=== PATIENT | female | born 1995 | race Caucasian/White ===

== ENCOUNTER 2018-01-25 15:38 | Outpatient (CLI) | payer MEDICAID ==
[~2018-01-25] VITALS: Ht 160 cm; Wt 60.0 kg
[2018-01-25 16:20] VITALS: BP 92/55
[2018-01-25 17:03] VITALS: BP 92/55
[2018-01-25 17:12] LABS: MICROSCOPIC INDICATED
[2018-01-25] MEDS ORDERED: NITR100C56 PO (18:18)
[2018-01-25] MEDS ORDERED: NITROFURANTOIN (MACROBID) 100 MG CAPSULE ONE (18:23)
[2018-01-25] MEDS ORDERED: PLEASE ENTER ALLERGIES MC SCH (18:30)
[2018-01-25] MEDS ORDERED: NITROFURANTOIN (MACROBID) 100 MG CAPSULE PO ONE (18:30)
[2018-01-25] MEDS ORDERED: NITROFURANTOIN (MACROBID) 100 MG CAPSULE PO SCH (18:30)
== END 2018-01-25 18:30 | disposition home or self-care (01) ==
LOC: LDOP 15:38
PROVIDERS: ATTEND Obstetrics & Gynecology
DX: O26.893 Other specified pregnancy related conditions, third trimester (principal); R10.9 Unspecified abdominal pain; Z3A.33 33 weeks gestation of pregnancy
CPT/HCPCS: 36415; 59025; 81001; 82731; 87086; 99211; G0463

== ENCOUNTER 2018-02-10 15:55 | Inpatient (IN) | payer MEDICAID ==
[~2018-02-10] VITALS: Ht 160 cm; Wt 62.0 kg
[~2018-02-10 15:55] MED LIST: NITR100C56 PO
[2018-02-10] MEDS ORDERED: D5%-LACTATED RINGERS 1,000 ML IV SCH (16:26)
[2018-02-10] MEDS ORDERED: OXYTOCIN 30U/ 0.9% NaCL 500ML 500 ML IV ONE (16:26)
[2018-02-10] MEDS ORDERED: FENTANYL PF 100 MCG/2ML IVPush PRN (16:30)
[2018-02-10] MEDS ORDERED: FENTANYL PF 100 MCG/2ML IV PRN (16:30)
[2018-02-10] MEDS ORDERED: BETAMETHASONE 6 MG/ML, 5ML IM SCH (16:30)
[2018-02-10] MEDS ORDERED: PENICILLIN GK 5,000,000 UNITS in SODIUM CHLORIDE 0.9% 100 ML IVPB ONE (16:30)
[2018-02-10] MEDS ORDERED: ONDANSETRON 2MG/ML, 2ML IVPush PRN (16:30)
[2018-02-10] MEDS ORDERED: TERBUTALINE 1 MG/ML, 1ML IVPush PRN (16:30)
[2018-02-10] MEDS ORDERED: CALCIUM CARBONATE 500 MG TAB.CHEW PO PRN (16:30)
[2018-02-10 16:44] VITALS: BP 112/66
[2018-02-10] MEDS ORDERED: OXYTOCIN 30U/ 0.9% NaCL 500ML 500 ML ONE (16:49)
[2018-02-10] MEDS ORDERED: BETAMETHASONE 6 MG/ML, 5ML IM ONE (16:49)
[2018-02-10] MEDS ORDERED: NEWBORN KIT ONE (16:49)
[2018-02-10 17:03] LABS: BASOPHILS # (AUTO) 0.04 x10^3/uL (0-0.1); BASOPHILS % (AUTO) 1 % (0-1); EOSINOPHILS # (AUTO) 0.11 x10^3/uL (0-0.4); EOSINOPHILS % (AUTO) 1 % (1-7); LYMPHOCYTES # (AUTO) 1.46 x10^3/uL (1-3.4); LYMPHOCYTES % (AUTO) 19 % (22-44); MD NO; MEAN CORPUSCULAR HEMOGLOBIN 24.6 pg (27.0-34.8); MEAN CORPUSCULAR VOLUME 76.8 fL (80-100); MONOCYTES # (AUTO) 0.85 x10^3/uL (0.2-0.8); MONOCYTES % (AUTO) 11 % (2-9); NEUTROPHILS # (AUTO) 5.33 x10^3/uL (1.8-6.8); NEUTROPHILS % (AUTO) 68 % (42-75); PLATELET COUNT 248 x10^3/uL (130-400); RED BLOOD COUNT 3.79 x10^6/uL (3.82-5.3); RED CELL DISTRIBUTION WIDTH 14.1 % (9.6-15.2)
[2018-02-10] MEDS: LACTATED RINGERS 1,000 ML IV SCH (17:04)
[2018-02-10 17:26] LABS: AMPHETAMINE SCREEN, URINE Negative (Negative); BARBITURATE SCREEN, URINE Negative (Negative); BENZODIAZEPINE SCREEN, URINE Negative (Negative); CANNABINOID SCREEN, URINE Negative (Negative); COCAINE SCREEN, URINE Negative (Negative); METHADONE SCREEN, URINE Negative (Negative); OPIATE SCREEN, URINE Negative (Negative)
[2018-02-10] MEDS ORDERED: FENTANYL/BUPIV./NS/PF 250 ML EPIDCONT SCH ×2 (19:19→22:44)
[2018-02-10 19:24] VITALS: BP 97/56
[2018-02-10] MEDS ORDERED: FENTANYL PF 500 MCG, BUPIVACAINE/PF 0.5%, 30ML 62.5 ML in SODIUM CHLORIDE 0.9% 177.5 ML EPIDCONT SCH (19:30)
[2018-02-10] MEDS ORDERED: MISOPROSTOL 200 MCG TABLET ONE (19:47)
[2018-02-10] MEDS ORDERED: LIDOCAINE/PF 1%, 30ML ONE (19:47)
[2018-02-10] MEDS ORDERED: FENTANYL PF 100 MCG/2ML ONE (19:53)
[2018-02-10] MEDS: PENICILLIN GK 2,500,000 UNITS in DEXTROSE 5% 100 ML IVPB SCH (21:09)
[2018-02-10] MEDS ORDERED: LACTATED RINGERS 1,000 ML IV SCH (22:44)
[2018-02-10] MEDS ORDERED: NALOXONE 0.4 MG/ML, 1ML IVPush PRN (23:00)
[2018-02-10] MEDS ORDERED: EPHEDRINE 50 MG/ML, 1ML IVPush PRN (23:00)
[2018-02-10] MEDS ORDERED: LACTATED RINGERS 1,000 ML IVBOLUS PRN (23:00)
[2018-02-11] MEDS: PENICILLIN GK 2,500,000 UNITS in DEXTROSE 5% 100 ML IVPB SCH ×3 (01:05→08:59)
[2018-02-11] MEDS: LACTATED RINGERS 1,000 ML IV SCH (05:13)
[2018-02-11] MEDS ORDERED: OXYTOCIN 30U/ 0.9% NaCL 500ML 500 ML IV PRN (06:34)
[2018-02-11] MEDS: OXYTOCIN 30U/ 0.9% NaCL 500ML 500 ML IV SCH ×2 (11:46→21:46)
[2018-02-11] MEDS ORDERED: IBUPROFEN 600 MG TABLET ONE (11:56)
[2018-02-11] MEDS ORDERED: OXYTOCIN 30U/ 0.9% NaCL 500ML 500 ML ONE (11:56)
[2018-02-11] MEDS: IBUPROFEN 600 MG TABLET PO PRN ×2 (11:59→18:27)
[2018-02-11] MEDS ORDERED: OXYcodone/APAP 5/325MG TABLET PO PRN (12:00)
[2018-02-11] MEDS ORDERED: OXYcodone IR 5MG TABLET PO PRN (12:00)
[2018-02-11] MEDS ORDERED: ACETAMINOPHEN 325 MG TABLET PO PRN (12:00)
[2018-02-11] MEDS ORDERED: MISOPROSTOL 200 MCG TABLET PR PRN (12:00)
[2018-02-11] MEDS ORDERED: ONDANSETRON 2MG/ML, 2ML IV PRN (12:00)
[2018-02-11 13:30] VITALS: BP 106/67
[2018-02-11 16:30] VITALS: BP 111/68
[2018-02-11 19:40] LABS: MEAN CORPUSCULAR HEMOGLOBIN 25.8 pg (27.0-34.8); MEAN CORPUSCULAR HGB CONC 33.2 g/dL (32.4-35.8); MEAN CORPUSCULAR VOLUME 77.8 fL (80-100); MEAN PLATELET VOLUME 9.1 fL (7.4-10.4); PLATELET COUNT 227 x10^3/uL (130-400); RED BLOOD COUNT 3.37 x10^6/uL (3.82-5.3); RED CELL DISTRIBUTION WIDTH 14.2 % (9.6-15.2)
[2018-02-11 20:00] VITALS: BP 102/64
[2018-02-11 20:11] LABS: BASOPHILS # (AUTO) 0.12 x10^3/uL (0-0.1); BASOPHILS % (AUTO) 1 % (0-1); EOSINOPHILS # (AUTO) 0.02 x10^3/uL (0-0.4); EOSINOPHILS % (AUTO) 0 % (1-7); LYMPHOCYTES # (AUTO) 1.36 x10^3/uL (1-3.4); LYMPHOCYTES % (AUTO) 8 % (22-44); MD SCAN; MONOCYTES # (AUTO) 1.54 x10^3/uL (0.2-0.8); MONOCYTES % (AUTO) 9 % (2-9); NEUTROPHILS # (AUTO) 13.39 x10^3/uL (1.8-6.8); NEUTROPHILS % (AUTO) 82 % (42-75)
[2018-02-12 00:15] VITALS: BP 100/65
[2018-02-12] MEDS: IBUPROFEN 600 MG TABLET PO PRN ×4 (00:34→19:39)
[2018-02-12 04:00] VITALS: BP 101/64
[2018-02-12 07:00] VITALS: BP 108/48
[2018-02-12] MEDS: PRENATAL VIT/IRON/FA 1 EACH TABLET PO SCH (07:19)
[2018-02-12] MEDS: DOCUSATE 100 MG CAPSULE PO PRN ×2 (07:19→19:40)
[2018-02-12] MEDS: OXYTOCIN 30U/ 0.9% NaCL 500ML 500 ML IV SCH (07:46)
[2018-02-12 19:30] VITALS: BP 111/75
[2018-02-13] MEDS: IBUPROFEN 600 MG TABLET PO PRN ×3 (01:46→14:01)
[2018-02-13] MEDS: DOCUSATE 100 MG CAPSULE PO PRN (07:53)
[2018-02-13] MEDS: PRENATAL VIT/IRON/FA 1 EACH TABLET PO SCH (07:53)
[2018-02-13 08:00] VITALS: BP 107/70
[2018-02-13] MEDS ORDERED: IBUP-1222 PO (10:51)
== END 2018-02-13 14:00 | disposition home or self-care (01) | DRG 775 ==
LOC: LDOP 15:55 → LDIP 16:26 → UNDOADMIN 16:33 → LDIP 02-11 03:57 → 2NW 02-11 14:02
PROVIDERS: ADMIT Obstetrics & Gynecology; ATTEND Obstetrics & Gynecology
PROC: 10E0XZZ Delivery of Products of Conception, External Approach (ICD-10-PCS; principal; 2018-02-11)
PROC: 0HQ9XZZ Repair Perineum Skin, External Approach (ICD-10-PCS; 2018-02-11)
PROC: 0UQMXZZ Repair Vulva, External Approach (ICD-10-PCS; 2018-02-11)
PROC: 3E0R3BZ Introduction of Anesthetic Agent into Spinal Canal, Percutaneous Approach (ICD-10-PCS; 2018-02-11)
PROC: 00HU33Z Insertion of Infusion Device into Spinal Canal, Percutaneous Approach (ICD-10-PCS; 2018-02-11)
DX: O42.913 Preterm premature rupture of membranes, unspecified as to length of time between rupture and onset of labor, third trimester (principal); Z37.0 Single live birth; O99.02 Anemia complicating childbirth; D50.9 Iron deficiency anemia, unspecified; Z3A.35 35 weeks gestation of pregnancy; Z83.3 Family history of diabetes mellitus; O70.0 First degree perineal laceration during delivery; O71.82 Other specified trauma to perineum and vulva; O99.52 Diseases of the respiratory system complicating childbirth; O99.344 Other mental disorders complicating childbirth; J45.909 Unspecified asthma, uncomplicated; F32.9 Major depressive disorder, single episode, unspecified; Z88.6 Allergy status to analgesic agent
CPT/HCPCS: 36415; 80307; 85025; 86850; 86900; 87081; J0702; J2540; J2590; J7120